=== PATIENT | female | born 1985 | race Caucasian/White ===

== ENCOUNTER 2024-11-02 14:50 | Emergency (ER) | payer MEDICAID, OTHER ==
[~2024-11-02] VITALS: Ht 170.2 cm; Wt 90.7 kg
[2024-11-02] MEDS: IV NS 1000 ML 1,000 ML IV ONE (15:05)
[2024-11-02] MEDS ORDERED: LORAZEPAM 2 MG/1 ML VIAL ONE (15:15)
[2024-11-02] MEDS ORDERED: FAMOTIDINE. 20 MG/2 ML VIAL IV ONE (15:16)
[2024-11-02] MEDS ORDERED: diphenhydrAMINE 50 MG/1 ML VIAL ONE (15:16)
[2024-11-02] MEDS ORDERED: DEXAMETHASONE SOD PHOSPHATE 10 MG INJ ONE (15:16)
[2024-11-02] MEDS: LORAZEPAM 2 MG/1 ML VIAL IV ONE (15:17)
[2024-11-02] MEDS: diphenhydrAMINE 50 MG/1 ML VIAL IV ONE (15:19)
[2024-11-02] MEDS: DEXAMETHASONE SOD PHOSPHATE 4 MG INJ IV ONE (15:21)
[2024-11-02 15:22] LABS: PLATELET COUNT (AUTO) 282 K/uL (179-408); RED BLOOD CELL COUNT(AUTO) 4.63 MIL/uL (3.63-4.92); RED CELL DISTRIBUTION WIDTH 12.5 % (12.3-17.7); WHITE BLOOD COUNT (AUTO) 15.5 K/uL (3.8-11.8)
[2024-11-02 15:30] LABS: CREATININE 0.9 mg/dL (0.6-1.3); SODIUM SERUM 140.0 mmol/L (136-145); UREA NITROGEN, BLOOD 14.0 mg/dL (7-18)
[2024-11-02] MEDS: FAMOTIDINE. 20 MG/2 ML VIAL IV ONE (15:35)
[2024-11-02] MEDS ORDERED: LIDOCAINE 1%-EPI 1:100,000 20 ML VIAL ONE (15:38)
[2024-11-02] MEDS ORDERED: PRED20TA PO (16:57)
[2024-11-02 17:20] VITALS: BP 129/71; O2SAT 98
== END 2024-11-02 17:20 | disposition home or self-care (01) ==
LOC: ER 14:50
DX: R06.02 Shortness of breath (principal); T50.995A Adverse effect of other drugs, medicaments and biological substances, initial encounter; J45.909 Unspecified asthma, uncomplicated; Z88.0 Allergy status to penicillin; Z88.1 Allergy status to other antibiotic agents; Z88.8 Allergy status to other drugs, medicaments and biological substances; Y92.89 Other specified places as the place of occurrence of the external cause
CPT/HCPCS: 99284; 96374; 96361; 96375; 80048; 83735; 85025; 36415; J1100; J1200; J1308; J3490; J2060; J7040; A4606; A4663